=== PATIENT | male | born 1975 | race African-American/Black ===

== ENCOUNTER 2018-11-24 15:27 | Inpatient (IN) | payer OTHER ==
[2018-11-24 19:26] VITALS: BMI 25.0
--- NOTE | 2018-11-25 00:10 | HP ---
CIWA Score Nausea/Vomitin-No Nausea/No Vomiting Muscle Tremors: 1-None Visible, but [place] Anxiety: 4-Mod. Anxious/Guarded Agitation: 4-Moderately Restless Paroxysmal Sweats: 3 Orientation: 0-Oriented Tacttile Disturbances: 0-None Auditory Disturbances: 0-None Visual Disturbances: 0-None Headache: 0-None Present CIWA-Ar Total Score: 12 - Admission Criteria OAS Guidelines: Admission for Medically Managed Detox: Requires at least one of the followin. CIWA greater than 12 2. Seizures within the past 24 hours 3. Delirium tremens within the past 24 hours 4. Hallucinations within the past 24 hours 5. Acute intervention needed for co occurring medical disorder 6. Acute intervention needed for co occurring psychiatric disorder 7. Severe withdrawal that cannot be handled at a lower level of care (continued vomiting, continued diarrhea, abnormal vital signs) requiring intravenous medication and/or fluids 8. Patient presents the following: CIWA greater than 12 Admission Criteria Met: Admission criteria met Admission ROS [facility] Chief Complaint: C/O WITHDRAWAL SX'S Allergies/Adverse Reactions: Allergies Allergy/AdvReac Type Severity Reaction Status Date / Time aspirin Allergy Severe Difficulty Verified 11/24/18 19:19 Breathing History of Present Illness: 43 Y.O. MALE WITH HX/O ALCOHOLISM HERE FOR DETOX. PRESENTS WITH C/O WITHDRAWAL SX'S. CIWA 12. LAST DRINK 1 DAY AGO. DAILY DRINKER. 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 THIS IS HIS FIRST ADMISSION. LAST DETOX ABOUT 5 MONTHS AGO. DENIES ANY SIGNIFICANT PERIOD OF CLEAN TIME. HX/O SEIZURE MEDICALLY RELATED. LAST EPISODE OVER 20 YEARS AGO. DENIES BLACK OUTS, DT'S. Exam Limitations: No Limitations - Ebola screening Have you traveled outside of the country in the last 21 days: No Have you had contact with anyone from an Ebola affected area: No Have you been sick,other than usual withdrawal symptoms: No Do you have a fever: No - Review of Systems Constitutional: Chills, Loss of Appetite, Malaise, Night Sweats, Changes in sleep EENT: reports: Ear Pain (RIGHT X 1 DAY), Dental Problems (MISSING TEETH) Respiratory: reports: No Symptoms reported Cardiac: reports: No Symptoms Reported GI: reports: Poor Appetite, Poor Fluid Intake, Vomiting : reports: No Symptoms Reported Musculoskeletal: reports: Back Pain Integumentary: reports: Change in Hair/Nails Neuro: reports: Seizure Endocrine: reports: No Symptoms Reported Hematology: reports: No Symptoms Reported Psychiatric: reports: Orientated x3, Anxious, Depressed (DENIES SI/HI) Other Systems: Reviewed and Negative Patient History - Patient Medical History Hx Anemia: No Hx Asthma: No Hx Chronic Obstructive Pulmonary Disease (COPD): No Hx Cancer: No Hx Cardiac Disorders: No Hx Congestive Heart Failure: No Hx Hypertension: Yes Hx Hypercholesterolemia: No Hx Pacemaker: No HX Cerebrovascular Accident: No Hx Seizures: Yes Hx Dementia: No Hx Diabetes: No Hx Gastrointestinal Disorders: No Hx Liver Disease: No Hx Genitourinary Disorders: No Hx Sexually Transmitted Disorders: No Hx Renal Disease (ESRD): No Hx Thyroid Disease: No Hx Human Immunodeficiency Virus (HIV): No Hx Hepatitis C: No Hx Depression: Yes Hx Suicide Attempt: No Hx Bipolar Disorder: Yes Hx Schizophrenia: Yes Other Medical History: BELLS PALSY - Patient Surgical History Past Surgical History: No - PPD History Previous Implant?: Yes Documented Results: Negative w/o proof Implanted On Prior [facility] Admission?: No PPD to be Administered?: Yes - Smoking Cessation Smoking history: Current every day smoker Have you smoked in the past 12 months: Yes Aproximately how many cigarettes per day: 20 Cigars Per Day: 0 Hx Chewing Tobacco Use: No Initiated information on smoking cessation: Yes 'Breaking Loose' booklet given: 11/25/18 - Substances abused Cocaine Substance route: Smoking Frequency: 3-6 times per week Amount used: 2 grams Age of first use: 15 Date of last use: 11/22/18 Alcohol Substance route: Oral Frequency: Daily Amount used: 1 pint, 2 24 ounces beer Age of first use: 15 Date of last use: 11/24/18 Marijuana/Hashish Substance route: Smoking Frequency: Daily Amount used: 5 - 6 blunts Age of first use: 12 Date of last use: 11/24/18 Family Disease History - Family Disease History Family Disease History: Other: Father (ALCOHOLIC/ AIDS), Brother ( ALCOHOLIC/DRUGS) Admission Physical Exam [facility] - Vital Signs Vital Signs: Vital Signs - 24 hr 11/24/18 11/24/18 19:16 22:16 Temperature 98.4 F 98.4 F Pulse Rate 72 72 Respiratory 17 17 Rate Blood Pressure 129/95 129/95 - Physical General Appearance: Yes: Moderate Distress, Irritable HEENTM: Yes: EOMI, Normocephalic, Normal Voice, STARLA, Pharynx Normal, Other ( MISSING TEETH) Respiratory: Yes: Chest Non-Tender, Lungs Clear, Normal Breath Sounds, No Respiratory Distress, No Accessory Muscle Use Neck: Yes: No masses,lesions,Nodules, Supple Breast: Yes: Breast Exam Deferred Cardiology: Yes: Regular Rhythm, Regular Rate, S1, S2 Abdominal: Yes: Normal Bowel Sounds, Non Tender, Flat, Soft Genitourinary: Yes: Within Normal Limits Back: Yes: Normal Inspection Musculoskeletal: Yes: full range of Motion, Gait Steady Extremities: Yes: Normal Capillary Refill, Normal Range of Motion, Non-Tender Neurological: Yes: Fully Oriented, Alert, Motor Strength 5/5, Depressed Affect Integumentary: Yes: Dry, Warm Lymphatic: Yes: Within Normal Limits - Diagnostic (1) Alcohol dependence with uncomplicated withdrawal Current Visit: Yes Status: Acute (2) Cannabis abuse, uncomplicated Current Visit: Yes Status: Acute (3) Cocaine abuse, uncomplicated Current Visit: Yes Status: Acute (4) Nicotine dependence Current Visit: Yes Status: Acute (5) HTN (hypertension) Current Visit: Yes Status: Acute (6) Non compliance w medication regimen Current Visit: Yes Status: Acute (7) History of seizure as Current Visit: Yes Status: Acute (8) Depressed affect Current Visit: Yes Status: Acute (9) At risk for dehydration due to poor fluid intake Current Visit: Yes Status: Acute Cleared for Admission S - Detox or Rehab [facility] Level of Care: Medically Managed Detox Regimen/Protocol: Librium Claeared for Rehab Admission: No Breathalyzer - Breathalyzer Breathalyzer: 0 Urine Drug Screen - Test Device Lot number: [id number] Expiration date: 09/16/20 - Control Is test valid?: Yes - Results Drug screen NEGATIVE: No Urine drug screen results: THC-Marijuana, CHRISTOPHER-Cocaine Inpatient Rehab Admission - Rehab Decision to Admit Inpatient rehab admission?: No
[2018-11-25] MEDS ORDERED: BISMUTH SUBSALICYLATE 524 MG/30 ML UD PO PRN (00:18)
[2018-11-25] MEDS ORDERED: MAGNESIUM CITRATE 300 ML BOTTLE PO PRN (00:18)
[2018-11-25] MEDS ORDERED: chlordiazePOXIDE HCL 25 MG CAPSULE PO PRN (00:18)
[2018-11-25] MEDS ORDERED: P-EPHED 60MG/TRIPROLIDI 2.5MG TABLET PO PRN (00:18)
[2018-11-25] MEDS ORDERED: ACETAMINOPHEN 325 MG TABLET (FP) PO PRN ×2 (00:18)
[2018-11-25] MEDS ORDERED: chlordiazePOXIDE HCL 25 MG CAPSULE PO ONE (00:18)
[2018-11-25] MEDS ORDERED: MAGNESIUM HYDROX 2400MG/30ML ORAL SUSPENSION 30 ML CUP PO PRN (00:18)
[2018-11-25] MEDS ORDERED: ONDANSETRON *ODT* 4 MG TABLET SL PRN (00:18)
[2018-11-25] MEDS ORDERED: MENTHOL/PHENOL 1 EACH UD MM PRN (00:18)
[2018-11-25] MEDS ORDERED: guaiFENesin 200 MG/10 ML 10 ML UNIT-DOSE CUPS PO PRN (00:18)
[2018-11-25] MEDS ORDERED: METHOCARBAMOL 500 MG TABLET PO PRN (00:18)
[2018-11-25] MEDS ORDERED: MELATONIN 5 MG TABLETS PO PRN (00:18)
[2018-11-25] MEDS ORDERED: hydrOXYzine PAMOATE 25 MG CAPSULE (FP) PO PRN (00:18)
[2018-11-25] MEDS ORDERED: MAG HYDROX/AL HYDROX/SIMETH 30 ML UNIT-DOSE CUP PO PRN (00:18)
[2018-11-25] MEDS ORDERED: NICOTINE POLACRILEX 2 MG GUM BUC PRN (00:18)
[2018-11-25] MEDS ORDERED: DICYCLOMINE HCL 10 MG CAPSULE PO PRN (00:18)
[2018-11-25] MEDS: chlordiazePOXIDE HCL 25 MG CAPSULE PO SCH ×4 (05:41→22:55)
[2018-11-25] MEDS: PRENATAL VITAMINS W/ FOLIC ACID TABLET (FP) PO SCH (10:50)
[2018-11-25 12:17] LABS: HEMATOCRIT 43.4 % (35.4-49); MCH 29.1 pg (25.7-33.7); MCHC 32.3 g/dl (32.0-35.9); MEAN CELL VOLUME 90.2 fl (80-96); PLATELET COUNT 200 K/MM3 (134-434); RBC 4.82 M/mm3 (4.00-5.60); RDW 13.2 % (11.9-15.9); WHITE BLOOD COUNT 6.5 K/mm3 (4.0-10.0)
[2018-11-25 12:28] LABS: PH,URINE 6.5 (5.0-8.0); URINE APPEARANCE CLEAR; URINE BILIRUBIN NEGATIVE (NEGATIVE); URINE COLOR YELLOW; URINE GLUCOSE (UA) NEGATIVE (NEGATIVE); URINE KETONE NEGATIVE (NEGATIVE); URINE LEUK ESTERASE NEGATIVE (NEGATIVE); URINE NITRITE NEGATIVE (NEGATIVE); URINE PROTEIN NEGATIVE (NEGATIVE)
--- NOTE | 2018-11-25 13:03 | CONSULT ---
[facility] Psychiatric Consult - Data Date of interview: 11/25/18 Admission source: [facility] Identifying data: Patient is a 43 year old single male, father of two, unemployed, domiciled, and is supported by [facility]. This is patient's first admission to detox at [facility]. Patient admitted to for alcohol, marijuana, and cocaine dependence. Substance Abuse History: Smoking Cessation. Smoking history: Current every day smoker. Have you smoked in the past 12 months: Yes. Aproximately how many cigarettes per day: 20. Cigars Per Day: 0. Hx Chewing Tobacco Use: No. Initiated information on smoking cessation: Yes. 'Breaking Loose' booklet given : 11/25/18. - Substances abused. Cocaine. Substance route: Smoking. Frequency: 3-6 times per week. Amount used: 2 grams. Age of first use: 15. Date of last use: 11/22/18. Alcohol. Substance route: Oral. Frequency: Daily. Amount used: 1 pint, 2 24 ounces beer. Age of first use: 15. Date of last use: 11/24/18. Marijuana/Hashish. Substance route: Smoking. Frequency : Daily. Amount used: 5 - 6 blunts. Age of first use: 12. Date of last use: 11/24/18 Medical History: hypertension, seizures, [place] Palsy. Psychiatric History: Patient presents as lethargic, sedated and fatigue. Patient unable to provide a clear, cohesive, psychiatric history. Patient reports history of one psychiatric history in [place]. He reports h/o bipolar disorder and schizophrenia. Reports past history of outpatient psychiatric care, most recently 1-2 years ago. States he does not currently accept psychotropic medications. Patient denies h/o suicide attempt. Physical/Sexual Abuse/Trauma History: denies. Mental Status Exam - Mental Status Exam Alert and Oriented to: Time, Place, Person Cognitive Function: Good Patient Appearance: Well Groomed Mood: Withdrawn Affect: Mood Congruent Patient Behavior: Sedated, Fatigued Speech Pattern: Delayed Voice Loudness: Moderately Soft/Quiet Thought Process: Goal Oriented Thought Disorder: Not Present Hallucinations: Denies Suicidal Ideation: Denies Homicidal Ideation: Denies Insight/Judgement: Poor Sleep: Fair Appetite: Fair Muscle strength/Tone: Normal Gait/Station: Other (Did not observe patient's gait.) Psychiatric Findings - Problem List ([place] 1, 2,3) (1) Substance induced mood disorder Current Visit: Yes Status: Acute (2) Alcohol dependence with uncomplicated withdrawal Current Visit: Yes Status: Acute (3) Cannabis abuse, uncomplicated Current Visit: Yes Status: Acute (4) Cocaine abuse, uncomplicated Current Visit: Yes Status: Acute (5) Nicotine dependence Current Visit: Yes Status: Acute - Initial Treatment Plan Initial Treatment Plan: Psychoeducation provided. Detoxification in progress. Observation.
--- NOTE | 2018-11-25 13:16 | PN ---
[facility] CIWA - CIWA Score Nausea/Vomitin-Mild Nausea/No Vomiting Muscle Tremors: 2 Anxiety: 2 Agitation: 2 Paroxysmal Sweats: 1-Minimal Palms Moist Orientation: 1-Uncertain about Date Tacttile Disturbances: 1-Very Mild Itch/Numbness Auditory Disturbances: 0-None Visual Disturbances: 0-None Headache: 1-Very Mild CIWA-Ar Total Score: 11 S Progress Note (SOAP) Subjective: doing well with librium detox protocol less tremor mild restlessness ambulating on hallway Objective: 11/25/18 13:17 Vital Signs Temperature 97 F L 11/25/18 13:08 Pulse Rate 73 11/25/18 13:08 Respiratory Rate 18 11/25/18 13:08 Blood Pressure 136/98 11/25/18 13:08 O2 Sat by Pulse Oximetry (%) Laboratory Last Values WBC 6.5 K/mm3 (4.0-10.0) 11/25/18 08:30 RBC 4.82 M/mm3 (4.00-5.60) 11/25/18 08:30 Hgb 14.0 GM/dL (11.7-16.9) 11/25/18 08:30 Hct 43.4 % (35.4-49) 11/25/18 08:30 MCV 90.2 fl (80-96) 11/25/18 08:30 MCH 29.1 pg (25.7-33.7) 11/25/18 08:30 MCHC 32.3 g/dl (32.0-35.9) 11/25/18 08:30 RDW 13.2 % (11.9-15.9) 11/25/18 08:30 Plt Count 200 K/MM3 (134-434) 11/25/18 08:30 MPV 11.0 fl (7.5-11.1) 11/25/18 08:30 Urine Color Yellow 11/25/18 10:46 Urine Appearance Clear 11/25/18 10:46 Urine pH 6.5 (5.0-8.0) 11/25/18 10:46 Ur Specific [place] 1.022 (1.010-1.035) 11/25/18 10:46 Urine Protein Negative (NEGATIVE) 11/25/18 10:46 Urine Glucose (UA) Negative (NEGATIVE) 11/25/18 10:46 Urine Ketones Negative (NEGATIVE) 11/25/18 10:46 Urine Blood Negative (NEGATIVE) 11/25/18 10:46 Urine Nitrite Negative (NEGATIVE) 11/25/18 10:46 Urine Bilirubin Negative (NEGATIVE) 11/25/18 10:46 Urine Urobilinogen 1.0 mg/dL (0.2-1.0) 11/25/18 10:46 Ur Leukocyte Esterase Negative (NEGATIVE) 11/25/18 10:46 lab noted Assessment: 11/25/18 13:18 alcohol withdrawal sx Plan: continue alcohol detox
[2018-11-25 13:21] LABS: ALBUMIN 3.6 g/dl (3.4-5.0); BILIRUBIN,TOTAL 0.3 mg/dL (0.2-1); CALCIUM 8.8 mg/dL (8.5-10.1); CREATININE 1.1 mg/dL (0.55-1.3); POTASSIUM 3.9 mmol/L (3.5-5.1); TOT PROT 7.1 g/dl (6.4-8.2)
--- NOTE | 2018-11-25 14:34 | EKG ---
Test Reason : Blood Pressure : / mmHG Vent. Rate : 062 BPM Atrial Rate : 062 BPM P-R Int : 194 ms QRS Dur : 088 ms QT Int : 436 ms P-R-T Axes : 063 005 021 degrees QTc Int : 442 ms NORMAL SINUS RHYTHM MINIMAL VOLTAGE CRITERIA FOR LVH, MAY BE NORMAL VARIANT BORDERLINE ECG NO PREVIOUS ECGS AVAILABLE Confirmed by Raulito Mendoza ([id number]) on 11/25/2018 2:34:17 PM Referred By: Confirmed By:Raulito Mendoza
[2018-11-25] MEDS: THIAMINE HCL 100 MG TABLET (FP) PO SCH (22:55)
[2018-11-26] MEDS: chlordiazePOXIDE HCL 25 MG CAPSULE PO SCH ×4 (05:59→22:03)
--- NOTE | 2018-11-26 10:17 | PN ---
[facility] CIWA - CIWA Score Nausea/Vomitin-Mild Nausea/No Vomiting Muscle Tremors: 3 Anxiety: 2 Agitation: 2 Paroxysmal Sweats: 1-Minimal Palms Moist Orientation: 0-Oriented Tacttile Disturbances: 1-Very Mild Itch/Numbness Auditory Disturbances: 0-None Visual Disturbances: 0-None Headache: 0-None Present CIWA-Ar Total Score: 10 S Progress Note (SOAP) Subjective: doing well with librium detox protocol less tremor encourage discuss aftercare sweat on and off through out the day tolerate food and fluid well Objective: 11/26/18 10:19 Vital Signs Temperature 98 F 11/26/18 09:14 Pulse Rate 74 11/26/18 09:14 Respiratory Rate 20 11/26/18 09:14 Blood Pressure 135/84 11/26/18 09:14 O2 Sat by Pulse Oximetry (%) Laboratory Last Values WBC 6.5 K/mm3 (4.0-10.0) 11/25/18 08:30 RBC 4.82 M/mm3 (4.00-5.60) 11/25/18 08:30 Hgb 14.0 GM/dL (11.7-16.9) 11/25/18 08:30 Hct 43.4 % (35.4-49) 11/25/18 08:30 MCV 90.2 fl (80-96) 11/25/18 08:30 MCH 29.1 pg (25.7-33.7) 11/25/18 08:30 MCHC 32.3 g/dl (32.0-35.9) 11/25/18 08:30 RDW 13.2 % (11.9-15.9) 11/25/18 08:30 Plt Count 200 K/MM3 (134-434) 11/25/18 08:30 MPV 11.0 fl (7.5-11.1) 11/25/18 08:30 Sodium 143 mmol/L (136-145) 11/25/18 08:30 Potassium 3.9 mmol/L (3.5-5.1) 11/25/18 08:30 Chloride 108 mmol/L (98-107) H 11/25/18 08:30 Carbon Dioxide 28 mmol/L (21-32) 11/25/18 08:30 Anion Gap 7 MMOL/L (8-16) L 11/25/18 08:30 BUN 18.0 mg/dL (7-18) 11/25/18 08:30 Creatinine 1.1 mg/dL (0.55-1.3) 11/25/18 08:30 Est GFR (CKD-EPI)AfAm 95.46 11/25/18 08:30 Est GFR (CKD-EPI)NonAf 82.36 11/25/18 08:30 Random Glucose 102 mg/dL (74-106) 11/25/18 08:30 Calcium 8.8 mg/dL (8.5-10.1) 11/25/18 08:30 Total Bilirubin 0.3 mg/dL (0.2-1) 11/25/18 08:30 AST 17 U/L (15-37) 11/25/18 08:30 ALT 25 U/L (13-61) 11/25/18 08:30 Alkaline Phosphatase 73 U/L (45-117) 11/25/18 08:30 Total Protein 7.1 g/dl (6.4-8.2) 11/25/18 08:30 Albumin 3.6 g/dl (3.4-5.0) 11/25/18 08:30 Urine Color Yellow 11/25/18 10:46 Urine Appearance Clear 11/25/18 10:46 Urine pH 6.5 (5.0-8.0) 11/25/18 10:46 Ur Specific [place] 1.022 (1.010-1.035) 11/25/18 10:46 Urine Protein Negative (NEGATIVE) 11/25/18 10:46 Urine Glucose (UA) Negative (NEGATIVE) 11/25/18 10:46 Urine Ketones Negative (NEGATIVE) 11/25/18 10:46 Urine Blood Negative (NEGATIVE) 11/25/18 10:46 Urine Nitrite Negative (NEGATIVE) 11/25/18 10:46 Urine Bilirubin Negative (NEGATIVE) 11/25/18 10:46 Urine Urobilinogen 1.0 mg/dL (0.2-1.0) 11/25/18 10:46 Ur Leukocyte Esterase Negative (NEGATIVE) 11/25/18 10:46 lab noted Assessment: 11/26/18 10:19 alcohol withdrawal sx Plan: continue alcohol detox
[2018-11-26] MEDS: PRENATAL VITAMINS W/ FOLIC ACID TABLET (FP) PO SCH (10:41)
[2018-11-26] MEDS: THIAMINE HCL 100 MG TABLET (FP) PO SCH (22:03)
[2018-11-27] MEDS ORDERED: chlordiazePOXIDE HCL 10 MG CAPSULE PO PRN
[2018-11-27] MEDS: chlordiazePOXIDE HCL 10 MG CAPSULE PO SCH ×4 (05:30→22:06)
[2018-11-27] MEDS: PRENATAL VITAMINS W/ FOLIC ACID TABLET (FP) PO SCH (10:48)
--- NOTE | 2018-11-27 10:51 | PN ---
S CIWA - CIWA Score Nausea/Vomitin-Mild Nausea/No Vomiting Muscle Tremors: 2 Anxiety: 2 Agitation: 3 Paroxysmal Sweats: 1-Minimal Palms Moist Orientation: 0-Oriented Tacttile Disturbances: 0-None Auditory Disturbances: 0-None Visual Disturbances: 0-None Headache: 0-None Present CIWA-Ar Total Score: 9 S Progress Note (SOAP) Subjective: 43 years old male admitted on 11/25/18 for alcohol withdrawal sx history of hypertension treated with dietary control blood pressure is well controlled by the alcohol detox regimen denies chest pain denies dizziness cardiac S1S2 pulmonary: clear lungs bilaterally Objective: 11/27/18 10:54 Vital Signs Temperature 98.1 F 11/27/18 09:59 Pulse Rate 58 L 11/27/18 09:59 Respiratory Rate 20 11/27/18 09:59 Blood Pressure 122/84 11/27/18 09:59 O2 Sat by Pulse Oximetry (%) Laboratory Last Values WBC 6.5 K/mm3 (4.0-10.0) 11/25/18 08:30 RBC 4.82 M/mm3 (4.00-5.60) 11/25/18 08:30 Hgb 14.0 GM/dL (11.7-16.9) 11/25/18 08:30 Hct 43.4 % (35.4-49) 11/25/18 08:30 MCV 90.2 fl (80-96) 11/25/18 08:30 MCH 29.1 pg (25.7-33.7) 11/25/18 08:30 MCHC 32.3 g/dl (32.0-35.9) 11/25/18 08:30 RDW 13.2 % (11.9-15.9) 11/25/18 08:30 Plt Count 200 K/MM3 (134-434) 11/25/18 08:30 MPV 11.0 fl (7.5-11.1) 11/25/18 08:30 Sodium 143 mmol/L (136-145) 11/25/18 08:30 Potassium 3.9 mmol/L (3.5-5.1) 11/25/18 08:30 Chloride 108 mmol/L (98-107) H 11/25/18 08:30 Carbon Dioxide 28 mmol/L (21-32) 11/25/18 08:30 Anion Gap 7 MMOL/L (8-16) L 11/25/18 08:30 BUN 18.0 mg/dL (7-18) 11/25/18 08:30 Creatinine 1.1 mg/dL (0.55-1.3) 11/25/18 08:30 Est GFR (CKD-EPI)AfAm 95.46 11/25/18 08:30 Est GFR (CKD-EPI)NonAf 82.36 11/25/18 08:30 Random Glucose 102 mg/dL (74-106) 11/25/18 08:30 Calcium 8.8 mg/dL (8.5-10.1) 11/25/18 08:30 Total Bilirubin 0.3 mg/dL (0.2-1) 11/25/18 08:30 AST 17 U/L (15-37) 11/25/18 08:30 ALT 25 U/L (13-61) 11/25/18 08:30 Alkaline Phosphatase 73 U/L (45-117) 11/25/18 08:30 Total Protein 7.1 g/dl (6.4-8.2) 11/25/18 08:30 Albumin 3.6 g/dl (3.4-5.0) 11/25/18 08:30 Urine Color Yellow 11/25/18 10:46 Urine Appearance Clear 11/25/18 10:46 Urine pH 6.5 (5.0-8.0) 11/25/18 10:46 Ur Specific [place] 1.022 (1.010-1.035) 11/25/18 10:46 Urine Protein Negative (NEGATIVE) 11/25/18 10:46 Urine Glucose (UA) Negative (NEGATIVE) 11/25/18 10:46 Urine Ketones Negative (NEGATIVE) 11/25/18 10:46 Urine Blood Negative (NEGATIVE) 11/25/18 10:46 Urine Nitrite Negative (NEGATIVE) 11/25/18 10:46 Urine Bilirubin Negative (NEGATIVE) 11/25/18 10:46 Urine Urobilinogen 1.0 mg/dL (0.2-1.0) 11/25/18 10:46 Ur Leukocyte Esterase Negative (NEGATIVE) 11/25/18 10:46 RPR Titer Nonreactive (NONREACTIVE) 11/26/18 06:00 lab noted Assessment: 11/27/18 10:54 alcohol withdrawal sx Plan: continue alcohol detox
[2018-11-27] MEDS: THIAMINE HCL 100 MG TABLET (FP) PO SCH (22:06)
[2018-11-28] MEDS: chlordiazePOXIDE HCL 10 MG CAPSULE PO SCH ×2 (05:47→17:01)
[2018-11-28] MEDS: PRENATAL VITAMINS W/ FOLIC ACID TABLET (FP) PO SCH (10:51)
--- NOTE | 2018-11-28 15:23 | PN ---
S CIWA - CIWA Score Nausea/Vomitin-No Nausea/No Vomiting Muscle Tremors: None Anxiety: 0-No Anxiety, at Ease Agitation: 1-Slight > Activity Paroxysmal Sweats: No Perspiration Orientation: 2-Disoriented Date<2 days Tacttile Disturbances: 0-None Auditory Disturbances: 0-None Visual Disturbances: 0-None Headache: 0-None Present CIWA-Ar Total Score: 3 BHS Progress Note (SOAP) Subjective: Patient denies current Withdrawal / Detox symptoms and reports that he feels well overall at this time. Objective: PATIENT A & O X 2 (UNCERTAIN ABOUT CURRENT DAY / DATE). PATIENT OBSERVED AMBULATING ON UNIT UNASSISTED. IN NO ACUTE DISTRESS. 11/28/18 15:22 Vital Signs Temperature 96.7 F L 11/28/18 09:17 Pulse Rate 100 H 11/28/18 09:17 Respiratory Rate 16 11/28/18 09:17 Blood Pressure 130/88 11/28/18 09:17 O2 Sat by Pulse Oximetry (%) Laboratory Tests 11/25/18 11/25/18 11/25/18 08:30 08:30 10:46 WBC 6.5 RBC 4.82 Hgb 14.0 Hct 43.4 MCV 90.2 MCH 29.1 MCHC 32.3 RDW 13.2 Plt Count 200 MPV 11.0 Sodium 143 Potassium 3.9 Chloride 108 H Carbon Dioxide 28 Anion Gap 7 L BUN 18.0 Creatinine 1.1 Est GFR (CKD-EPI)AfAm 95.46 Est GFR (CKD-EPI)NonAf 82.36 Random Glucose 102 Calcium 8.8 Total Bilirubin 0.3 AST 17 ALT 25 Alkaline Phosphatase 73 Total Protein 7.1 Albumin 3.6 Urine Color Yellow Urine Appearance Clear Urine pH 6.5 Ur Specific [place] 1.022 Urine Protein Negative Urine Glucose (UA) Negative Urine Ketones Negative Urine Blood Negative Urine Nitrite Negative Urine Bilirubin Negative Urine Urobilinogen 1.0 Ur Leukocyte Esterase Negative RPR Titer 11/26/18 06:00 WBC RBC Hgb Hct MCV MCH MCHC RDW Plt Count MPV Sodium Potassium Chloride Carbon Dioxide Anion Gap BUN Creatinine Est GFR (CKD-EPI)AfAm Est GFR (CKD-EPI)NonAf Random Glucose Calcium Total Bilirubin AST ALT Alkaline Phosphatase Total Protein Albumin Urine Color Urine Appearance Urine pH Ur Specific [place] Urine Protein Urine Glucose (UA) Urine Ketones Urine Blood Urine Nitrite Urine Bilirubin Urine Urobilinogen Ur Leukocyte Esterase RPR Titer Nonreactive LABS NOTED. Assessment: 11/28/18 15:22 WITHDRAWAL SYMPTOMS. Plan: CONTINUE DETOX. PATIENT SCHEDULED FOR D/C FROM DETOX UNIT TOMORROW.
[2018-11-28] MEDS: THIAMINE HCL 100 MG TABLET (FP) PO SCH (21:59)
[2018-11-29] MEDS ORDERED: chlordiazePOXIDE HCL 10 MG CAPSULE PO ONE (05:00)
[2018-11-29 07:00] VITALS: BP 138/95; PULSE 65; TEMP 97.4
--- NOTE | 2018-11-29 20:13 | DS ---
[facility] Detox Discharge Summary Admission Date: 11/25/18 Discharge Date: 11/29/18 - History Present History: Alcohol Dependence, Cannabis Dependence, Cocaine Dependence Additional Comments: PATIENT GOING TO [facility] ([place], [place]) FOR AFTERCARE. PATIENT WAS DISCHARGED FROM DETOX UNIT IN STABLE MEDICAL CONDITION. Pertinent Past History: Nicotine Dependence, History Of Seizure As [place], Depression, HTN, Bipolar Disorder, Schizophrenia, [place]'s Palsy. - Physical Exam Results Vital Signs: Vital Signs Temperature 97.4 F L 11/29/18 07:00 Pulse Rate 65 11/29/18 07:00 Respiratory Rate 18 11/29/18 07:00 Blood Pressure 138/95 11/29/18 07:00 O2 Sat by Pulse Oximetry (%) Pertinent Admission Physical Exam Findings: WITHDRAWAL SYMPTOMS. Laboratory Tests 11/25/18 11/25/18 11/25/18 08:30 08:30 10:46 WBC 6.5 RBC 4.82 Hgb 14.0 Hct 43.4 MCV 90.2 MCH 29.1 MCHC 32.3 RDW 13.2 Plt Count 200 MPV 11.0 Sodium 143 Potassium 3.9 Chloride 108 H Carbon Dioxide 28 Anion Gap 7 L BUN 18.0 Creatinine 1.1 Est GFR (CKD-EPI)AfAm 95.46 Est GFR (CKD-EPI)NonAf 82.36 Random Glucose 102 Calcium 8.8 Total Bilirubin 0.3 AST 17 ALT 25 Alkaline Phosphatase 73 Total Protein 7.1 Albumin 3.6 Urine Color Yellow Urine Appearance Clear Urine pH 6.5 Ur Specific [place] 1.022 Urine Protein Negative Urine Glucose (UA) Negative Urine Ketones Negative Urine Blood Negative Urine Nitrite Negative Urine Bilirubin Negative Urine Urobilinogen 1.0 Ur Leukocyte Esterase Negative RPR Titer 11/26/18 06:00 WBC RBC Hgb Hct MCV MCH MCHC RDW Plt Count MPV Sodium Potassium Chloride Carbon Dioxide Anion Gap BUN Creatinine Est GFR (CKD-EPI)AfAm Est GFR (CKD-EPI)NonAf Random Glucose Calcium Total Bilirubin AST ALT Alkaline Phosphatase Total Protein Albumin Urine Color Urine Appearance Urine pH Ur Specific [place] Urine Protein Urine Glucose (UA) Urine Ketones Urine Blood Urine Nitrite Urine Bilirubin Urine Urobilinogen Ur Leukocyte Esterase RPR Titer Nonreactive LABS NOTED. - Treatment Hospital Course: Detox Protocol Followed, Detoxed Safely, Responded well, Discharged Condition Good Patient has Accepted a Rehab Referral to: PT. GOING TO [facility] ([place], [place]). - Medication Discharge Medications: Ambulatory Orders NK [No Known Home Medication] 11/24/18 - Diagnosis (1) Alcohol dependence with uncomplicated withdrawal Status: Acute (2) At risk for dehydration due to poor fluid intake Status: Acute (3) Cannabis abuse, uncomplicated Status: Acute (4) Cocaine abuse, uncomplicated Status: Acute (5) Depressed affect Status: Acute (6) HTN (hypertension) Status: Acute Qualifiers: Hypertension type: unspecified Qualified Code(s): I10 - Essential (primary ) hypertension (7) History of seizure as Status: Acute (8) Nicotine dependence Status: Acute Qualifiers: Nicotine product type: cigarettes Substance use status: uncomplicated Qualified Code(s): F17.210 - Nicotine dependence, cigarettes, uncomplicated (9) Non compliance w medication regimen Status: Acute (10) Substance induced mood disorder Status: Acute - AMA Did Patient Leave Against Medical Advice: No
== END 2018-11-29 08:53 | disposition home or self-care (01) | DRG 897 ==
LOC: YASAS 15:27 → Y3N 11-25 01:25
PROVIDERS: ADMIT Surgery; ATTEND Surgery
PROC: HZ2ZZZZ Detoxification Services for Substance Abuse Treatment (ICD-10-PCS; principal; 2018-11-25)
PROC: HZ2ZZZZ Detoxification Services for Substance Abuse Treatment (ICD-10-PCS; 2018-11-25)
DX: F10.230 Alcohol dependence with withdrawal, uncomplicated (principal); F14.10 Cocaine abuse, uncomplicated; F12.20 Cannabis dependence, uncomplicated; F17.210 Nicotine dependence, cigarettes, uncomplicated; F31.9 Bipolar disorder, unspecified; F20.9 Schizophrenia, unspecified; F19.24 Other psychoactive substance dependence with psychoactive substance-induced mood disorder; I10 Essential (primary) hypertension; G51.0 Bell's palsy; R45.89 Other symptoms and signs involving emotional state; Z91.89 Other specified personal risk factors, not elsewhere classified; Z86.73 Personal history of transient ischemic attack (TIA), and cerebral infarction without residual deficits; Z91.14 Patient's other noncompliance with medication regimen
CPT/HCPCS: 36415; 80053; 81003; 85027; 86593; 93005; 93010